=== PATIENT | female | born 1945 ===

== ENCOUNTER 2017-11-28 13:48 | Outpatient (CLI) | payer MEDICARE ==
--- NOTE | 2017-11-28 14:52 | XRay Report ---
XRAY RIGHT SHOULDER THREE VIEWS: 11/28/17 13:48:00 CLINICAL: Right shoulder pain. FINDINGS: Moderate osteopenia. Normal glenohumeral alignment. Severe glenohumeral joint osteoarthritis with large osteophytes and three suspected loose bodies in the joint. Normal AC joint. No fracture or dislocation. No bone lesion. IMPRESSION: Severe glenohumeral joint osteoarthritis and three suspected loose bodies in the joint.
== END 2017-11-28 13:49 | disposition home or self-care (01) ==
LOC: SPVIMAG 13:48
PROVIDERS: ATTEND Orthopaedic Surgery Sports Medicine
DX: M19.011 Primary osteoarthritis, right shoulder (principal); M85.811 Other specified disorders of bone density and structure, right shoulder